=== PATIENT | male | born 1985 | race American Indian/Alaskan Native ===

== ENCOUNTER 2020-01-27 07:05 | Day surgery (SDC) | payer MEDICARE, OTHER ==
[~2020-01-27] VITALS: Ht 177.8 cm; Wt 97.3 kg
[~2020-01-27 07:05] MED LIST: MELATONIN1 MG PO; TYLENOL325 M1 PO
--- NOTE | 2020-01-27 09:08 | NUR ---
01/27/20 0908 Valerie Ritter 0849 PT ARRIVED TO PACU ON 2L NC, PT ASLEEP. RESP EVEN AND UNLABORED. 0804 PT WOKE TO PAINFUL STIMULI AND O2 REMOVED. PT REORIENTED TO PACU AND FALLS BACK TO SLEEP. VSS.
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
--- NOTE | 2020-01-31 12:16 | PATH ---
[facility] [address] [place], [place] [address] Signed SPECIMEN(S): A DUODENUM BULB SPECIMEN(S): B ANTRUM SPECIMEN(S): C LOWER ESOPHAGUS SPECIMEN SOURCE: A. DUODENUM BULB B. ANTRUM C. LOWER ESOPHAGUS CLINICAL HISTORY: Hemorrhage of anus. MICROSCOPIC DESCRIPTION: Histologic sections of all submitted blocks are examined by light microscopy. These findings, together with the gross examination, support the pathologic diagnosis. FINAL PATHOLOGIC DIAGNOSIS: A. Duodenal bulb, biopsy: - Duodenal mucosa with mild Cornelia's gland hyperplasia. - Negative for dysplasia or malignancy. B. Stomach, antrum, biopsy: - Antral mucosa with chronic, active gastritis. - Numerous Helicobacter organisms present. - Negative for dysplasia or malignancy. C. Esophagus, lower, biopsy: - Squamous mucosa with chronic inflammation with eosinophils and reactive changes, see Comment. - Negative for intestinal metaplasia, dysplasia, or malignancy. - See comment. COMMENT: Regarding specimen C: Focally, increased intraepithelial eosinophils (up to 16 seen per high power field) are present within the squamous mucosa. This finding could be secondary to reflux esophagitis, but, in the correct clinical context, could also represent eosinophilic esophagitis. Correlation with endoscopic findings is necessary. NAL:cml:C2NR GROSS DESCRIPTION: Three specimens are received in three containers, labeled "Brady Perla." A. The specimen, labeled "Brady Perla, 1," and designated on the PATIENT NAME: BRADY PERLA JR PATHOLOGY DATE OF : 89 REPORT #: [id number] PHYSICIAN: LULY COOMBS PCP: ANASTASIYA ANGEL MD REPORT IS CONFIDENTIAL AND NOT TO BE RELEASED WITHOUT AUTHORIZATION [facility] [address] [place] [address] Signed requisition "duodenal bulb," is received in formalin and consists of one walden soft tissue fragment(s) that measure 0.4 cm in greatest dimension. The specimen is entirely submitted in cassette (A1). B. The specimen, labeled "Brady Perla, 2," and designated on the requisition "antrum biopsy," is received in formalin and consists of one walden soft tissue fragment(s) that measure 0.4 cm in greatest dimension. The specimen is entirely submitted in cassette (B1). C. The specimen, labeled "Brady Perla, 3," and designated on the requisition "lower esophagus biopsy," is received in formalin and consists of one white-walden soft tissue fragment(s) that measure 0.4 cm in greatest dimension. The specimen is entirely submitted in cassette (C1). FB (under the direct supervision of a pathologist) The Gross Description was prepared using a voice recognition system. The report was reviewed for accuracy; however, sound-alike word errors, addition and/or deletions may occur. If there is any question about this report, please contact Client Services. PERFORMING LABORATORY: The technical component was performed by [facility] [address] (Manager Care: Madeleine Patel MD; CLIA# [id number]). Professional interpretation was performed by [facility], [address] [address] (CLIA# [id number]). Diagnostician: Vidya Momin MD Pathologist Electronically Signed 01/31/2020 Copies: ~ PATIENT NAME: BRADY PERLA JR PATHOLOGY DATE OF : 89 REPORT #: [id number] PHYSICIAN: LULY COOMBS PCP: ANASTASIYA ANGEL MD REPORT IS CONFIDENTIAL AND NOT TO BE RELEASED WITHOUT AUTHORIZATION
== END 2020-01-27 09:33 | disposition home or self-care (01) ==
LOC: OPS 07:05 → DS 08:20 → OPS 08:20 → DS 08:45 → OPS 09:33
PROVIDERS: Colon & Rectal Surgery
PROC: 0DB38ZX Excision of Lower Esophagus, Via Natural or Artificial Opening Endoscopic, Diagnostic (ICD-10-PCS; 2020-01-27)
PROC: 0DJD8ZZ Inspection of Lower Intestinal Tract, Via Natural or Artificial Opening Endoscopic (ICD-10-PCS; 2020-01-27)
PROC: 0DB98ZX Excision of Duodenum, Via Natural or Artificial Opening Endoscopic, Diagnostic (ICD-10-PCS; principal; 2020-01-27 08:15)
PROC: 0DB78ZX Excision of Stomach, Pylorus, Via Natural or Artificial Opening Endoscopic, Diagnostic (ICD-10-PCS; 2020-01-27 08:15)
DX: K64.8 Other hemorrhoids (principal); K29.51 Unspecified chronic gastritis with bleeding; K20.9 Esophagitis, unspecified; F32.9 Major depressive disorder, single episode, unspecified; Z80.0 Family history of malignant neoplasm of digestive organs; Z79.899 Other long term (current) drug therapy
CPT/HCPCS: 86677; 88305; J2001; J2704; J7121

== ENCOUNTER 2020-11-23 11:35 | Emergency (ER) | payer MEDICARE, OTHER ==
[~2020-11-23] VITALS: Ht 175.3 cm; Wt 88.5 kg
[2020-11-25] MEDS ORDERED: GEODON20 MG PO (11:02)
== END 2020-11-25 11:44 | disposition home or self-care (01) ==
LOC: ED 11:35
DX: F29 Unspecified psychosis not due to a substance or known physiological condition (principal); Z20.822 Contact with and (suspected) exposure to COVID-19
CPT/HCPCS: 80053; 80176; 81001; 84443; 85025; 96372; 99284; 99285; C9803; J3486; Q0163; U0003

== ENCOUNTER 2020-12-06 11:25 | Emergency (ER) | payer MEDICARE, OTHER ==
[~2020-12-06] VITALS: Ht 175.3 cm; Wt 88.5 kg
[~2020-12-06 11:25] MED LIST changes: +GEODON20 MG PO
--- OUTSIDE RECORDS SUMMARY | 2020-12-06 11:36 | XMS ---
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 Shawn has no Care Guidelines for this patient. [facility]12 MO.) [facility] NOTE: Visits indicate total known visits. ED/C VISIT TRACKING (12 MO.) 12/06/2020 11:26 [facility] [place] TYPE: Emergency COMPLAINT: - MEDICAL CLEARANCE 11/23/2020 11:36 [facility] [place] TYPE: Emergency COMPLAINT: - MEDICAL CLEARANCE DIAGNOSES: - Unspecified psychosis not due to a substance or known physiological condition INPATIENT VISIT TRACKING (12 MO.) No inpatient visits to display in this time frame [email or web address]
[2020-12-06] MEDS ORDERED: TYLENOL325 MG PO (12:28)
[2020-12-06] MEDS ORDERED: GEODON40 MG PO (13:25)
== END 2020-12-06 15:32 | disposition home or self-care (01) ==
LOC: ED 11:25
DX: R45.1 Restlessness and agitation (principal); F17.200 Nicotine dependence, unspecified, uncomplicated; Z79.899 Other long term (current) drug therapy
CPT/HCPCS: 80053; 81001; 84443; 85025; 93005; 93010; 99285-25; G0480

== ENCOUNTER 2021-03-23 11:05 | Emergency (ER) | payer MEDICARE, OTHER ==
[~2021-03-23] VITALS: Ht 175.3 cm; Wt 85.7 kg
[~2021-03-23 11:05] MED LIST changes: +GEODON40 MG PO; +TYLENOL325 MG PO
== END 2021-03-23 16:42 | disposition home or self-care (01) ==
LOC: ED 11:05
DX: S92.355A Nondisplaced fracture of fifth metatarsal bone, left foot, initial encounter for closed fracture (principal); F17.200 Nicotine dependence, unspecified, uncomplicated; X50.1XXA Overexertion from prolonged static or awkward postures, initial encounter; Z79.899 Other long term (current) drug therapy
CPT/HCPCS: 73630; 99283-25

== ENCOUNTER 2021-07-31 10:38 | Emergency (ER) | payer MEDICARE, OTHER ==
[~2021-07-31] VITALS: Ht 175.3 cm; Wt 88.5 kg
--- NOTE | 2021-07-31 19:37 | EKG ---
[facility] [address] [facility] [place], [place] [address] Signed Normal sinus rhythm Normal ECG No previous ECGs available Confirmed by VINNY DENIS DO ([id number]) on 07/31/2021 7:37:40 PM Electronically Signed By: VINNY DENIS DO 07/31/211936 PATIENT NAME: SADIA WOODARD Electrocardiogram DATE OF : 89 PHYSICIAN: VINNY DENIS DO REPORT #: [id number] REPORT IS CONFIDENTIAL AND NOT TO BE RELEASED WITHOUT AUTHORIZATION
== END 2021-07-31 15:03 | disposition home or self-care (01) ==
LOC: ED 10:38
DX: U07.1 COVID-19 (principal); R07.9 Chest pain, unspecified; F17.200 Nicotine dependence, unspecified, uncomplicated; Z79.899 Other long term (current) drug therapy
CPT/HCPCS: 36415; 71045; 80048; 84132; 84484; 85025; 85379; 93005; 93010; 99285-25